=== PATIENT | female | born 1960 | race Caucasian/White ===

== ENCOUNTER → 2017-03-24 15:07 | Outpatient (CLI) | payer OTHER ==
[2016-04-24 11:16] VITALS: BMI 21.5
[~2017-03-24 15:07] MED LIST: ACTIVELLA 1 MG-1 TAB PO; CELEBREX 100 M100 MG PO; LYRICA300 MG PO; PLAQUENIL200 MG PO; RESTASIS EYE DR30 EA EACH EYE; SYNTHROID50 MCG PO
== END | disposition home or self-care (01) ==
LOC: D.MAMMO 15:07
DX: Z12.31 Encounter for screening mammogram for malignant neoplasm of breast (principal)

== ENCOUNTER 2017-04-28 13:01 | Outpatient (CLI) | payer OTHER ==
[2017-04-28 14:18] VITALS: BP 126/74; BMI 22.0
--- NOTE | 2017-04-28 14:27 | NUR ---
RECLAST INFUSION BEGUN VIA PUMP.
--- NOTE | 2017-04-28 15:00 | NUR ---
INFUSION COMPLETED. IV D/C'D CATH INTACT. D/C INSTRUCTIONS GIVEN TO PT.
--- NOTE | 2017-04-28 15:05 | NUR ---
PT D/C'D AMBULATORY, ALERT AND ORIENTED.
== END 2017-04-28 15:05 | disposition home or self-care (01) ==
LOC: D.OPS 13:01
DX: M81.0 Age-related osteoporosis without current pathological fracture (principal)

== ENCOUNTER → 2018-03-31 18:23 | Outpatient (CLI) | payer OTHER | END | disposition home or self-care (01) | LOC: D.MAMMO 15:30 | DX: Z12.31 Encounter for screening mammogram for malignant neoplasm of breast (principal) ==

== ENCOUNTER → 2019-04-28 09:00 | Outpatient (CLI) | payer OTHER | END | disposition home or self-care (01) | LOC: D.MAMMO 09:00 | PROVIDERS: ATTEND Internal Medicine Endocrinology, Diabetes & Metabolism | DX: Z12.31 Encounter for screening mammogram for malignant neoplasm of breast (principal) ==